=== PATIENT | female | born 1940 | race Caucasian/White ===

== ENCOUNTER → 2016-07-22 | Outpatient (CLI) | payer BC, MEDICARE ==
[2016-07-09 10:33] VITALS: BP 144/68
[~2016-07-22] MED LIST: ASPI325T4 PO; EVOL140S SQ; ICOS1CAP PO; LEVO100T5 PO; METO100T11 PO; PANT40TA3 PO; PITA2TAB2 PO
--- NOTE | 2016-07-22 10:06 | RAD ---
Indication follow-up bleed. Noncontrast images of the head were obtained and are compared to an examination 07/04/2016. An acute calvarial finding is not seen. Visualized paranasal sinuses appear unremarkable. Small interhemispheric subdural hematoma, seen previously, has resolved. Additional areas of parenchymal contusion/hematoma involving the frontal lobes and right temporal lobe have resolved. Chronic changes are noted. A new or unexpected finding is not seen. IMPRESSION: Interval resolution of areas of hemorrhage. No acute or unexpected finding seen. Chronic changes are noted PQRS Compliance Statement: One or more of the following individualized dose reduction techniques were utilized for this examination: 1. Automated exposure control 2. Adjustment of the mA and/or kV according to patient size 3. Use of iterative reconstruction technique
== END | disposition home or self-care (01) ==
LOC: CT 10:33
PROVIDERS: ATTEND Neurological Surgery
DX: S00.83XA Contusion of other part of head, initial encounter (principal); X58.XXXA Exposure to other specified factors, initial encounter; Y93.89 Activity, other specified; Y92.89 Other specified places as the place of occurrence of the external cause; Y99.8 Other external cause status
CPT/HCPCS: 70450

== ENCOUNTER → 2018-12-15 | Outpatient (CLI) | payer OTHER ==
[2016-07-09 10:33] VITALS: BP 144/68
[~2018-12-15] MED LIST changes: -ASPI325T4 PO; +ASPI325T8 PO; +METO-247 PO; -METO100T11 PO
== END | disposition home or self-care (01) ==
LOC: PCVCCLINIC 14:50
PROVIDERS: ATTEND Internal Medicine
DX: I25.10 Atherosclerotic heart disease of native coronary artery without angina pectoris (principal); I10 Essential (primary) hypertension; E78.5 Hyperlipidemia, unspecified; I65.23 Occlusion and stenosis of bilateral carotid arteries; G47.33 Obstructive sleep apnea (adult) (pediatric); E78.00 Pure hypercholesterolemia, unspecified; Z95.1 Presence of aortocoronary bypass graft; Z79.82 Long term (current) use of aspirin
CPT/HCPCS: 36415; 80061; 93005; G0463